=== PATIENT | male | born 1985 | race Two or more races ===

== ENCOUNTER 2018-03-28 19:31 | Emergency (ER) | payer SELFPAY ==
[2018-03-28] MEDS: FAMOTIDINE 20 MG TABLET. PO (20:38)
[2018-03-28] MEDS: predniSONE 10 MG TABLET PO (20:39)
== END 2018-03-28 20:50 | disposition home or self-care (01) ==
LOC: ER 19:31
DX: T78.40XA Allergy, unspecified, initial encounter (principal); Z88.0 Allergy status to penicillin; X58.XXXA Exposure to other specified factors, initial encounter
CPT/HCPCS: 99283; J7512